=== PATIENT | male | born 1950 | race Caucasian/White ===

== ENCOUNTER 2020-09-28 21:36 | Observation (INO) | payer OTHER, MEDICARE ==
[2020-09-28 22:25] LABS: #Eosinphils 0.1 10x3/uL (0.0-0.5); #Monocytes 0.6 10x3/uL (0.0-1.1); #Neutrophils 5.2 10x3/uL (1.5-8.4); %Basophils 0.5 % (0.0-2.0); %Eosinophils 0.9 % (0.0-6.0); %Lymphocytes 29.5 % (18.0-47.0); %Monocytes 7.2 % (0.0-10.0); %Neutrophils 61.4 % (40.0-75.0); Hemoglobin 16.5 g/dL (13.5-17.5); Mean Corpuscular Hemoglobin 29.9 pg (27.0-33.0); Mean Corpuscular Volume 88.2 fl (81.2-95.1); Mean Platelet Volume 10.7 fl (7.4-10.4); Platelet Count 243 10x3/uL (150-450); RBC Distribution Width 12.8 % (11.5-14.5); Red Blood Cell (RBC) Count 5.51 10x6/uL (4.32-5.72); White Blood Cell (WBC) Count 8.5 10x3/uL (3.5-10.5)
[2020-09-28 22:46] LABS: ALT (SGPT) 39 U/L (8-55); AST (SGOT) 28 U/L (5-34); Alkaline Phosphatase 85 U/L (40-110); Anion Gap 12 mmol/L (10-20); BUN (Urea Nitrogen) 21 mg/dL (8.4-25.7); Bilirubin, Total 0.4 mg/dL (0.2-1.2); Calc. Creatinine Clearance 0 mL/min (70-130); Calcium 9.9 mg/dL (7.8-10.44); Carbon Dioxide 31 mmol/L (23-31); Chloride 99 mmol/L (98-107); Globulin 2.8 g/dL (2.4-3.5); Glucose 96 mg/dL (80-115); Protein, Total 7.8 g/dL (5.8-8.1); Sodium 138 mmol/L (136-145)
[2020-09-28] MEDS ORDERED: Aspirin Chewable 81 MG TAB ONE (22:52)
[2020-09-28] MEDS ORDERED: Nitroglycerin 2% Ointment 1 INCH/1 GM Packet ONE (22:52)
[2020-09-28] MEDS ORDERED: Nitroglycerin 0.4 MG TAB (25 Tab Bottle) SL PRN (23:51)
[2020-09-29] MEDS ORDERED: Enoxaparin Sodium 40 MG/0.4 ML SYRINGE SC SCH (00:15)
[2020-09-29 00:25] VITALS: BMI 28.3
[2020-09-29] MEDS: Nitroglycerin 2% Ointment 1 INCH/1 GM Packet TOP SCH ×3 (01:32→14:12)
[2020-09-29 01:38] LABS: Troponin I Less than 0.010 ng/mL (< 0.028)
[2020-09-29 05:40] LABS: Anion Gap 13 mmol/L (10-20); BUN (Urea Nitrogen) 20 mg/dL (8.4-25.7); Calc. Creatinine Clearance 100 mL/min (70-130); Calcium 9.3 mg/dL (7.8-10.44); Carbon Dioxide 27 mmol/L (23-31); Cardiac Risk 5.4 (Less than 4.5); Chloride 103 mmol/L (98-107); Cholesterol 222 mg/dl (< 200 Desired); Glucose 98 mg/dL (80-115); HDL Cholesterol 41 mg/dL (>60 Neg Risk); LDL Cholesterol, Calculated 163 mg/dL; Magnesium 2.1 mg/dL (1.6-2.6); Potassium 3.8 mmol/L (3.5-5.1); Sodium 139 mmol/L (136-145); Triglycerides 90 mg/dL (Less than 150)
[2020-09-29] MEDS ORDERED: Aspirin 81 mg Enteric Coated Tablet PO SCH (09:00)
[2020-09-29] MEDS ORDERED: Losartan Potassium 50 MG TAB PO SCH (09:00)
[2020-09-29] MEDS ORDERED: Bisoprolol Fumarate 5 MG TAB PO SCH (09:00)
[2020-09-29 13:36] LABS: SARS-CoV-2 PCR by NAA Not Detected (NotDetected)
[2020-09-29 17:03] VITALS: BP 113/70; TEMP 99
[2020-09-29] MEDS ORDERED: Atorvastatin Calcium 40 MG TAB PO SCH (21:00)
== END 2020-09-29 18:00 | disposition home or self-care (01) ==
LOC: CSHERS 21:36 → CSHTELE 23:51 → UNDOADMOB 09-29 00:03
PROVIDERS: ADMIT Family Medicine; ATTEND Family Medicine
DX: R07.2 Precordial pain (principal); R07.89 Other chest pain; I10 Essential (primary) hypertension; E78.5 Hyperlipidemia, unspecified; K44.9 Diaphragmatic hernia without obstruction or gangrene; C82.90 Follicular lymphoma, unspecified, unspecified site; I25.10 Atherosclerotic heart disease of native coronary artery without angina pectoris; Z20.822 Contact with and (suspected) exposure to COVID-19; Z79.899 Other long term (current) drug therapy; Z79.82 Long term (current) use of aspirin; Z88.0 Allergy status to penicillin
CPT/HCPCS: 36415; 71045; 80048; 80053; 80061; 83735; 83880; 84484; 85025; 87635; 93005; 93010; 93312; 96372; G0378; J1650; U0003; U0005

== ENCOUNTER 2020-10-25 23:34 | Inpatient (IN) | payer OTHER, MEDICARE ==
[2020-10-26] MEDS ORDERED: Aspirin Chewable 81 MG TAB ONE (00:02)
[2020-10-26] MEDS ORDERED: Nitroglycerin 2% Ointment 1 INCH/1 GM Packet ONE (00:03)
[2020-10-26 00:36] LABS: #Eosinphils 0.1 10x3/uL (0.0-0.5); #Monocytes 0.6 10x3/uL (0.0-1.1); #Neutrophils 5.7 10x3/uL (1.5-8.4); %Basophils 0.5 % (0.0-2.0); %Eosinophils 0.6 % (0.0-6.0); %Lymphocytes 23.9 % (18.0-47.0); %Neutrophils 67.5 % (40.0-75.0); Hemoglobin 16.2 g/dL (13.5-17.5); Mean Corpuscular HGB CONC 34.8 g/dL (32.0-36.0); Mean Corpuscular Hemoglobin 30.3 pg (27.0-33.0); Mean Corpuscular Volume 87.1 fl (81.2-95.1); Mean Platelet Volume 10.8 fl (7.4-10.4); Platelet Count 221 10x3/uL (150-450); RBC Distribution Width 12.9 % (11.5-14.5); Red Blood Cell (RBC) Count 5.34 10x6/uL (4.32-5.72); White Blood Cell (WBC) Count 8.4 10x3/uL (3.5-10.5)
[2020-10-26 01:07] LABS: ALT (SGPT) 31 U/L (8-55); AST (SGOT) 22 U/L (5-34); Albumin 4.6 g/dL (3.4-4.8); Alkaline Phosphatase 82 U/L (40-110); Anion Gap 18 mmol/L (10-20); BUN (Urea Nitrogen) 14 mg/dL (8.4-25.7); Bilirubin, Total 0.5 mg/dL (0.2-1.2); CK (CPK) 154 U/L (30-200); Calc. Creatinine Clearance 0 mL/min (70-130); Calcium 9.7 mg/dL (7.8-10.44); Carbon Dioxide 23 mmol/L (23-31); Chloride 102 mmol/L (98-107); Globulin 2.7 g/dL (2.4-3.5); Glucose 105 mg/dL (80-115); Potassium 4.1 mmol/L (3.5-5.1); Protein, Total 7.3 g/dL (5.8-8.1); Sodium 139 mmol/L (136-145)
[2020-10-26] MEDS ORDERED: Atorvastatin Calcium 40 MG TAB PO SCH (02:15)
[2020-10-26 02:49] VITALS: BMI 28.3
[2020-10-26 02:56] LABS: Troponin I Less than 0.010 ng/mL (< 0.028)
[2020-10-26] MEDS: Nitroglycerin 2% Ointment 1 INCH/1 GM Packet TOP SCH ×3 (05:43→23:22)
[2020-10-26 06:12] LABS: #Monocytes 0.5 10x3/uL (0.0-1.1); #Neutrophils 4.8 10x3/uL (1.5-8.4); %Basophils 0.6 % (0.0-2.0); %Eosinophils 0.4 % (0.0-6.0); %Lymphocytes 22.8 % (18.0-47.0); %Monocytes 6.9 % (0.0-10.0); Mean Corpuscular HGB CONC 34.4 g/dL (32.0-36.0); Mean Corpuscular Hemoglobin 30.1 pg (27.0-33.0); Mean Corpuscular Volume 87.6 fl (81.2-95.1); Mean Platelet Volume 10.8 fl (7.4-10.4); Platelet Count 219 10x3/uL (150-450); Red Blood Cell (RBC) Count 4.98 10x6/uL (4.32-5.72); White Blood Cell (WBC) Count 6.9 10x3/uL (3.5-10.5)
[2020-10-26 06:22] LABS: Anion Gap 17 mmol/L (10-20); BUN (Urea Nitrogen) 13 mg/dL (8.4-25.7); Calc. Creatinine Clearance 96 mL/min (70-130); Calcium 9.4 mg/dL (7.8-10.44); Carbon Dioxide 22 mmol/L (23-31); Chloride 103 mmol/L (98-107); Glucose 89 mg/dL (80-115); Magnesium 2.1 mg/dL (1.6-2.6); Potassium 3.9 mmol/L (3.5-5.1); Sodium 138 mmol/L (136-145)
[2020-10-26 06:24] LABS: Troponin I Less than 0.010 ng/mL (< 0.028)
[2020-10-26] MEDS: Aspirin Chewable 81 MG TAB PO SCH (08:23)
[2020-10-26] MEDS: Metoprolol Tartrate 25 MG TAB PO SCH ×2 (08:23→20:53)
[2020-10-26] MEDS: Losartan Potassium 50 MG TAB PO SCH (08:23)
[2020-10-26] MEDS ORDERED: Enoxaparin Sodium 40 MG/0.4 ML SYRINGE SC SCH (09:00)
[2020-10-26 13:33] LABS: SARS-CoV-2 NAA Rapid Test Not Detected (NotDetected)
[2020-10-26] MEDS ORDERED: Communication Order-Pharmacy FS SCH (18:15)
[2020-10-27 05:02] LABS: #Eosinphils 0.1 10x3/uL (0.0-0.5); #Monocytes 0.5 10x3/uL (0.0-1.1); %Basophils 0.4 % (0.0-2.0); %Eosinophils 0.8 % (0.0-6.0); %Monocytes 7.2 % (0.0-10.0); %Neutrophils 68.3 % (40.0-75.0); Hemoglobin 15.1 g/dL (13.5-17.5); Mean Corpuscular HGB CONC 33.1 g/dL (32.0-36.0); Mean Corpuscular Hemoglobin 29.7 pg (27.0-33.0); Mean Corpuscular Volume 89.8 fl (81.2-95.1); Mean Platelet Volume 10.8 fl (7.4-10.4); Platelet Count 202 10x3/uL (150-450); RBC Distribution Width 12.8 % (11.5-14.5); Red Blood Cell (RBC) Count 5.08 10x6/uL (4.32-5.72); White Blood Cell (WBC) Count 7.3 10x3/uL (3.5-10.5)
[2020-10-27 05:19] LABS: Anion Gap 14 mmol/L (10-20); BUN (Urea Nitrogen) 14 mg/dL (8.4-25.7); Calc. Creatinine Clearance 95 mL/min (70-130); Calcium 9.1 mg/dL (7.8-10.44); Carbon Dioxide 25 mmol/L (23-31); Chloride 103 mmol/L (98-107); Glucose 90 mg/dL (80-115); Magnesium 2.1 mg/dL (1.6-2.6); Potassium 3.8 mmol/L (3.5-5.1); Sodium 138 mmol/L (136-145)
[2020-10-27] MEDS: Nitroglycerin 2% Ointment 1 INCH/1 GM Packet TOP SCH ×2 (06:58→08:14)
[2020-10-27] MEDS: Losartan Potassium 50 MG TAB PO SCH (08:13)
[2020-10-27] MEDS: Sodium Chloride 0.9% 1,000 ML IV SCH ×2 (08:13→15:59)
[2020-10-27] MEDS: Aspirin Chewable 81 MG TAB PO SCH (08:13)
[2020-10-27] MEDS: Metoprolol Tartrate 25 MG TAB PO SCH (08:13)
[2020-10-27] MEDS ORDERED: Lidocaine 1% (PF) 30 ML VIAL ONE (11:30)
[2020-10-27] MEDS ORDERED: Heparin 10,000 UNITS/ 10 ML VIAL ONE (11:31)
[2020-10-27] MEDS ORDERED: Adenosine 6 MG/2 ML VIAL ONE (11:31)
[2020-10-27] MEDS ORDERED: Nitroglycerin 50 MG/250 ML BOT 250 ML ONE (11:31)
[2020-10-27] MEDS ORDERED: Sodium Chloride 0.9% 1,000 ML ONE (11:32)
[2020-10-27] MEDS ORDERED: Fentanyl 100 MCG/2 ML VIAL ONE (14:05)
[2020-10-27] MEDS ORDERED: Midazolam HCl 5 mg/5 ml Vial ONE (14:06)
[2020-10-27] MEDS ORDERED: Clopidogrel Bisulfate 300 MG TAB ONE (15:18)
[2020-10-27] MEDS ORDERED: Acetaminophen/Codeine 30-300mg Tablet PO PRN ×2 (15:44)
[2020-10-27 16:16] VITALS: BP 148/84; TEMP 98.3
[2020-10-27 16:24] LABS: Cardiac Risk 5.4 (Less than 4.5)
[2020-10-27] MEDS ORDERED: Atorvastatin Calcium 40 MG TAB PO SCH (21:00)
[2020-10-28] MEDS ORDERED: Clopidogrel Bisulfate 75 MG TAB PO SCH (09:00)
== END 2020-10-27 19:04 | disposition home or self-care (01) | DRG 247 ==
LOC: CSHERS 23:34 → CSHTELE 10-26 02:21 → OBSVTOIN 10-26 12:13
PROVIDERS: ADMIT Internal Medicine; ATTEND Family Medicine
PROC: 4A023N7 Measurement of Cardiac Sampling and Pressure, Left Heart, Percutaneous Approach (ICD-10-PCS; principal; 2020-10-27)
PROC: 027135Z Dilation of Coronary Artery, Two Arteries with Two Drug-eluting Intraluminal Devices, Percutaneous Approach (ICD-10-PCS; 2020-10-27)
PROC: B2161ZZ Fluoroscopy of Right and Left Heart using Low Osmolar Contrast (ICD-10-PCS; 2020-10-27)
PROC: B2111ZZ Fluoroscopy of Multiple Coronary Arteries using Low Osmolar Contrast (ICD-10-PCS; 2020-10-27)
PROC: B241ZZ3 Ultrasonography of Multiple Coronary Arteries, Intravascular (ICD-10-PCS; 2020-10-27)
DX: I25.110 Atherosclerotic heart disease of native coronary artery with unstable angina pectoris (principal); I50.32 Chronic diastolic (congestive) heart failure; Z20.822 Contact with and (suspected) exposure to COVID-19; K44.9 Diaphragmatic hernia without obstruction or gangrene; I11.0 Hypertensive heart disease with heart failure; Z88.0 Allergy status to penicillin; Z85.72 Personal history of non-Hodgkin lymphomas; E78.2 Mixed hyperlipidemia; Z79.82 Long term (current) use of aspirin; Z79.899 Other long term (current) drug therapy
CPT/HCPCS: 36415; 71045; 80048; 80053; 80061; 82550; 83735; 83880; 84484; 85025; 92928; 92978; 92979; 93005; 93458; 94760; 99152; 99153; C1753; C1760; C1874; C1887; C9600; G0378; J0153; J1644; J2001; J2250; J3010; J7050; U0002

== ENCOUNTER 2021-08-01 10:31 | Outpatient (CLI) | payer OTHER | END 2021-08-01 10:32 | disposition home or self-care (01) | LOC: CSHRAD 10:31 | PROVIDERS: ATTEND Family Medicine | DX: R05.9 Cough, unspecified (principal) | CPT/HCPCS: 71046 ==

== ENCOUNTER 2023-12-14 10:09 | Observation (INO) | payer MEDICARE, OTHER ==
[2023-12-14] MEDS ORDERED: Aspirin Chewable 81 MG TAB ONE (10:56)
[2023-12-14 11:03] LABS: ALT (SGPT) 27 U/L (8-55); AST (SGOT) 24 U/L (5-34); Albumin 4.6 g/dL (3.4-4.8); Alkaline Phosphatase 72 U/L (40-110); Anion Gap 17 mmol/L (10-20); BUN (Urea Nitrogen) 17 mg/dL (8.4-25.7); Bilirubin, Total 0.7 mg/dL (0.2-1.2); Calc. Creatinine Clearance 0 mL/min (70-130); Calcium 9.8 mg/dL (7.8-10.44); Carbon Dioxide 26 mmol/L (23-31); Chloride 100 mmol/L (98-107); Estimated GFR 55; Globulin 3.2 g/dL (2.4-3.5); Glucose 110 mg/dL (83-110); Protein, Total 7.8 g/dL (5.8-8.1); Sodium 139 mmol/L (136-145)
[2023-12-14 11:09] LABS: Troponin I Less than 0.010 ng/mL (< 0.028)
[2023-12-14 11:11] LABS: #Basophils 0.05 10x3/uL (0.0-0.2); #Monocytes 0.48 10x3/uL (0.0-1.1); #Neutrophils 4.68 10x3/uL (1.5-8.4); %Basophils 0.6 % (0.0-2.0); %Eosinophils 1.3 % (0.0-6.0); %Lymphocytes 31.8 % (18.0-47.0); %Monocytes 6.1 % (0.0-10.0); %Neutrophils 59.9 % (40.0-75.0); Hematocrit 45.9 % (38.8-50.0); Hemoglobin 16.4 g/dL (13.5-17.5); Mean Corpuscular HGB CONC 35.7 g/dL (32.0-36.0); Mean Corpuscular Hemoglobin 31.3 pg (27.0-33.0); Mean Corpuscular Volume 87.6 fL (81.2-95.1); Mean Platelet Volume 11.3 fL (7.4-10.4); Platelet Count 230 10x3/uL (150-450); RBC Distribution Width 12.6 % (11.5-14.5); Red Blood Cell (RBC) Count 5.24 10x6/uL (4.32-5.72); White Blood Cell (WBC) Count 7.8 10x3/uL (3.5-10.5)
[2023-12-14] MEDS ORDERED: Acetaminophen 500 MG TAB ONE (12:31)
[2023-12-14 13:38] VITALS: BMI 30.3
[2023-12-14 14:59] LABS: Troponin I 0.011 ng/mL (< 0.028)
[2023-12-14 18:00] LABS: Troponin I Less than 0.010 ng/mL (< 0.028)
[2023-12-14] MEDS ORDERED: Nitroglycerin 0.4 MG TAB (25 Tab Bottle) SL PRN ×2 (20:11→20:14)
[2023-12-14] MEDS: Losartan 50 MG TAB PO SCH (21:59)
[2023-12-14] MEDS: Ranolazine ER 500 MG TAB PO SCH (21:59)
[2023-12-14] MEDS: Clopidogrel Bisulfate 75 MG TAB PO SCH (21:59)
[2023-12-14] MEDS: Pantoprazole DR 40 MG TAB PO SCH (21:59)
[2023-12-14] MEDS: Atorvastatin Calcium 40 MG TAB PO SCH (21:59)
[2023-12-15] MEDS: Cholecalciferol 1,000 UNITS (25 MCG) TAB PO SCH (09:34)
[2023-12-15] MEDS: Enoxaparin 40 MG (0.4 mL) SYRINGE SC SCH (09:34)
[2023-12-15] MEDS: Aspirin 81 mg Enteric Coated Tablet PO SCH (09:34)
[2023-12-15] MEDS: Bisoprolol Fumarate 5 MG TAB PO SCH (09:35)
[2023-12-15 09:44] LABS: Cardiac Risk 3.7 (Less than 4.5)
[2023-12-15] MEDS: Magnesium 2 GM/50 ML(in water) 2 GM in Premix 1 BAG IVPB SCH (12:08)
[2023-12-15 13:21] VITALS: BP 120/67; TEMP 98.4
== END 2023-12-15 17:14 | disposition home or self-care (01) ==
LOC: CSHERS 10:09 → CSHERHOLD 11:44 → CSHTELE 13:16
PROVIDERS: ADMIT Family Medicine; ATTEND Family Medicine
DX: R07.9 Chest pain, unspecified (principal); I12.9 Hypertensive chronic kidney disease with stage 1 through stage 4 chronic kidney disease, or unspecified chronic kidney disease; N18.31 Chronic kidney disease, stage 3a; N40.1 Benign prostatic hyperplasia with lower urinary tract symptoms; R39.14 Feeling of incomplete bladder emptying; I25.10 Atherosclerotic heart disease of native coronary artery without angina pectoris; C82.90 Follicular lymphoma, unspecified, unspecified site; E78.5 Hyperlipidemia, unspecified; K44.9 Diaphragmatic hernia without obstruction or gangrene; Z88.0 Allergy status to penicillin; Z79.82 Long term (current) use of aspirin; Z79.899 Other long term (current) drug therapy; Z79.02 Long term (current) use of antithrombotics/antiplatelets; Z95.1 Presence of aortocoronary bypass graft; Z90.89 Acquired absence of other organs; Z98.890 Other specified postprocedural states
CPT/HCPCS: 71045; 80053; 80061; 84484 ×2; 85025; 93005 ×2; 93306; 99285; J3475; 36415; 93010; 96374; G0378; J1650

== ENCOUNTER 2023-12-17 02:38 | Emergency (ER) | payer MEDICARE, OTHER ==
[2023-12-17] MEDS ORDERED: Ondansetron PF 4 MG/2 ML Vial ONE (03:10)
[2023-12-17 03:22] LABS: #Basophils 0.04 10x3/uL (0.0-0.2); #Eosinphils 0.11 10x3/uL (0.0-0.5); #Monocytes 0.53 10x3/uL (0.0-1.1); #Neutrophils 4.37 10x3/uL (1.5-8.4); %Basophils 0.6 % (0.0-2.0); %Eosinophils 1.5 % (0.0-6.0); %Monocytes 7.4 % (0.0-10.0); %Neutrophils 61.4 % (40.0-75.0); Hematocrit 43.5 % (38.8-50.0); Hemoglobin 15.3 g/dL (13.5-17.5); Mean Corpuscular HGB CONC 35.2 g/dL (32.0-36.0); Mean Corpuscular Hemoglobin 30.8 pg (27.0-33.0); Mean Corpuscular Volume 87.7 fL (81.2-95.1); Mean Platelet Volume 10.6 fL (7.4-10.4); Platelet Count 197 10x3/uL (150-450); RBC Distribution Width 12.5 % (11.5-14.5); Red Blood Cell (RBC) Count 4.96 10x6/uL (4.32-5.72); White Blood Cell (WBC) Count 7.1 10x3/uL (3.5-10.5)
[2023-12-17 03:45] LABS: Troponin I Less than 0.010 ng/mL (< 0.028)
[2023-12-17 04:00] LABS: Influenza A by NAA Not Detected (NotDetected); Influenza B by NAA Not Detected (NotDetected); SARS-CoV-2 NAA Rapid Test Not Detected (NotDetected)
[2023-12-17 05:04] LABS: ALT (SGPT) 23 U/L (8-55); AST (SGOT) 21 U/L (5-34); Albumin 4.2 g/dL (3.4-4.8); Alkaline Phosphatase 76 U/L (40-110); Anion Gap 15 mmol/L (10-20); BUN (Urea Nitrogen) 19 mg/dL (8.4-25.7); Bilirubin, Total 0.5 mg/dL (0.2-1.2); CK (CPK) 178 U/L (30-200); Calc. Creatinine Clearance 0 mL/min (70-130); Calcium 9.2 mg/dL (7.8-10.44); Carbon Dioxide 25 mmol/L (23-31); Chloride 103 mmol/L (98-107); Estimated GFR 53; Glucose 101 mg/dL (83-110); Lipase 38 U/L (8-78); Potassium 3.8 mmol/L (3.5-5.1); Protein, Total 7.2 g/dL (5.8-8.1); Sodium 139 mmol/L (136-145)
== END 2023-12-17 05:20 | disposition home or self-care (01) ==
LOC: CSHERS 02:38
DX: B34.9 Viral infection, unspecified (principal); R11.0 Nausea; E78.5 Hyperlipidemia, unspecified; I10 Essential (primary) hypertension; Z79.899 Other long term (current) drug therapy
CPT/HCPCS: 0240U; 70450; 71045; 80053; 82550; 83605; 83690; 83735; 84484; 85025; 93005; 94760; J2405; 96374